=== PATIENT | male | born 1990 | race Caucasian/White ===

== ENCOUNTER 2019-08-22 16:30 | Emergency (ER) | payer OTHER ==
[~2019-08-22 16:30] MED LIST: CEPHALEXIN500 MG OR; ENGERIX-B10 MG/0.5 IM; LORTAB 5 OR; NO HOME MEDS; TRUVADA PO
== END 2019-08-22 16:35 | disposition left against medical advice (07) | DRG 951 ==
LOC: ED 16:30 → LWOBS 16:35 → ED 17:05 → LWOBS 17:05
DX: Z53.21 Procedure and treatment not carried out due to patient leaving prior to being seen by health care provider (principal)

== ENCOUNTER 2019-08-23 13:29 | Emergency (ER) | payer BC ==
[~2019-08-23] VITALS: Ht 185.4 cm; Wt 87.7 kg
[2019-08-23 16:00] VITALS: BP 129/79
== END 2019-08-23 16:00 | disposition home or self-care (01) | DRG 951 ==
LOC: ED 13:29
DX: Z20.828 Contact with and (suspected) exposure to other viral communicable diseases (principal)

== ENCOUNTER 2020-10-08 06:14 | Emergency (ER) | payer OTHER, BC ==
[2020-10-08 08:00] VITALS: BP 138/81
== END 2020-10-08 08:00 | disposition home or self-care (01) | DRG 948 ==
LOC: ED 06:14
DX: R52 Pain, unspecified (principal); R05 Cough; R50.9 Fever, unspecified; R53.83 Other fatigue; R11.0 Nausea; Z20.822 Contact with and (suspected) exposure to COVID-19

== ENCOUNTER 2020-12-01 12:38 | Emergency (ER) | payer OTHER, BC ==
[~2020-12-01] VITALS: Ht 185.4 cm; Wt 125.0 kg
[2020-12-01] MEDS ORDERED: IBUPROFEN600 MG PO (15:23)
[2020-12-01 15:50] VITALS: BP 142/68
== END 2020-12-01 15:50 | disposition home or self-care (01) | DRG 563 ==
LOC: ED 12:38
DX: M23.92 Unspecified internal derangement of left knee (principal); X50.0XXA Overexertion from strenuous movement or load, initial encounter; Y99.0 Civilian activity done for income or pay
CPT/HCPCS: L1830

== ENCOUNTER 2022-06-09 00:37 | Emergency (ER) | payer OTHER ==
[~2022-06-09] VITALS: Ht 185.4 cm; Wt 136.0 kg
[~2022-06-09 00:37] MED LIST changes: +IBUPROFEN600 MG PO
[2022-06-09] MEDS ORDERED: TIVICAY50 MG PO (00:58)
[2022-06-09] MEDS ORDERED: TRUVADA1 TA1 PO (00:58)
[2022-06-09 01:18] LABS: BASO% 0.3 % (0-3); EOS% 3.1 % (0-8); HEMATOCRIT 45.9 % (39.0-50.0); HEMOGLOBIN 15.7 g/dl (14.0-18.0); IMMATURE GRANULOCYTES 0.3 % (0.0-5.0); LYMPH% 30.3 % (15-41); MEAN CORPUSCULAR HGB 29.4 pG CALC (26.0-32.0); MEAN CORPUSCULAR HGB CONC 34.2 g/dL CAL (32.0-36.0); MONO% 7.2 % (2-13); NEUT# 5.92 thou/uL (1.82-7.42); NEUT% 58.8 % (42-76); RED BLOOD COUNT 5.34 mill/uL (4.70-6.10); RED CELL DISTRI WIDTH 11.9 % (11.5-15.5)
[2022-06-09 01:25] VITALS: BP 125/89
[2022-06-09 01:27] LABS: ALBUMIN 4.9 g/dL (3.2-5.0); ALKALINE PHOSPHATASE 58 u/l (38-126); ANION GAP 16 (6-22 (CALC)); BILIRUBIN, TOTAL 0.5 mg/dL (0.2-1.3); BUN 16 mg/dL (9-20); BUN/CREATININE RATIO 18 (12-20 (CALC)); CARBON DIOXIDE 25 mmol/l (22-30); CHLORIDE 105 mmol/l (95-108); CREATININE 0.9 mg/dL (0.7-1.3); GFR FOR AFR.AMER. > 60 ML/MIN (>=60 (CALC)); GFR OTHER RACES > 60 ML/MIN (>=60 (CALC)); POTASSIUM 3.7 mmol/l (3.5-5.1); SGOT/AST 23 u/l (17-59); SODIUM 141 mmol/l (137-146); TOTAL PROTEIN 7.4 g/dL (6.3-8.2)
== END 2022-06-09 01:27 | disposition home or self-care (01) | DRG 605 ==
LOC: ED 00:37
PROVIDERS: Family Medicine
DX: S61.231A Puncture wound without foreign body of left index finger without damage to nail, initial encounter (principal); W22.8XXA Striking against or struck by other objects, initial encounter; Y92.230 Patient room in hospital as the place of occurrence of the external cause